=== PATIENT | male | born 1940 | race Caucasian/White ===

== ENCOUNTER 2019-03-05 12:05 | Emergency (ER) | payer MEDICARE, SELFPAY ==
[2019-03-01 08:09] VITALS: BMI 31.3
[2019-03-05 12:06] VITALS: BP 169/93; PULSE 83; RESP 20; TEMP 36.4; BMI 32.8
[2019-03-05 12:31] LABS: White Blood Cells 0 SEEN /hpf (0-5)
[2019-03-05 12:40] LABS: Absolute Lymphocyte Count 2.12 X10^3/ul (0.83-4.51); Absolute Neutrophil Count 3.8 X10^3/uL (2.0-7.7); Basophil# 0.03 X10^3/uL; Basophil% 0.4 % (0-1); Eosinophil# 0.17 X10^3/uL; Eosinophils% 2.5 % (0-5); Hematocrit 47.2 % (40-54); Hemoglobin 16.5 g/dl (13.0-16.5); Lymphocyte # 2.12 X10^3/ul (4.0); Lymphocyte % 31.2 % (19-41); Mean Corpuscular Hgb 31.5 pg (27.0-32.0); Mean Corpuscular Volume 90.1 fL (80-94); Mean Platelet Vol. 11.1 fl (6.2-12.0); Monocyte# 0.68 X10^3/uL; Neutrophil # 3.79 X10^3/uL (2.7-7.7); Neutrophil % 55.8 % (47-70); Platelet Count 212 K/mm3 (150-450); RBC Distribution Width CV 12.7 % (11.6-14.6); RBC Distribution Width SD 41.5 fl (35.1-43.9); Red Blood Count 5.24 M/mm3 (4.6-6.2); White Blood Count 6.8 K/mm3 (4.4-11.0)
[2019-03-05 12:46] LABS: Anion Gap 7 (5-15); BUN 20 mg/dL (7-18); BUN/Creat Ratio 16.5 RATIO (10-20); Calcium,Total 9.3 mg/dL (8.5-10.1); Chloride 103 mmol/L (98-107); Creatinine, Serum 1.21 mg/dL (0.70-1.30); EST Glomerular Filtration Rate 61 mL/min (>60); Est Glom Filt Rate - Afr Amer 74 mL/min (>60); Estimated Creatinine Clearance 46.28 ml/min; Glucose 104 mg/dL (74-106); Potassium 4.2 mmol/L (3.5-5.1); Sodium Level 137 mmol/L (136-145)
[2019-03-05 12:47] LABS: POSITIVE COUNT NO; POSITIVE DIFFERENTIAL NO; POSITIVE MORPHOLOGY NO
[2019-03-05 12:48] LABS: Color, Urine Yellow (Yellow); Glucose, Dipstick Normal (Normal); Ketone-Dipstick Negative (Negative); Leukocyte Esterase-Dipstick 25 /ul (Negative); Nitrite-Dipstick Negative (Negative); Occult Blood-Urine 250 /ul (Negative); Protein-Dipstick 100 mg/dl (Negative); Urine Bilirubin Dipstick Negative (Negative); Urine Clarity Cloudy (Clear); Urine Urobilinogen Normal (Normal)
[2019-03-05 13:06] LABS: Red Blood Cells-Urine > 100 SEEN /hpf (0-5); Squamous Epithelial Cells - UA 0-5 SEEN /hpf (0-5)
[2019-03-05 13:07] LABS: Bacteria 1+ /hpf (None Seen); Mucous, Urine 1+ /hpf (<or=2+)
--- NOTE | 2019-03-05 13:51 | CT_ITS ---
STUDY: CT ABDOMEN AND PELVIS WITH CONTRAST REASON FOR EXAM: Male, 78 years old. Painless hematuria. History of prior TURP and right inguinal hernia repair. RADIATION DOSAGE (If Supplied By Facility): CTDIvol = ( 16.41 ) mGy, DLP = ( 1779.12 ) mGycm TECHNIQUE: Transaxial images were obtained from the dome of the diaphragm to the symphysis pubis without oral contrast. 100 IV Isovue 300 was administered. Sagittal and coronal images were reconstructed. Individualized dose optimization techniques were used for this CT. COMPARISON: None. FINDINGS: Minimal degree of increased linear markings at the lung bases suggestive of a linear scarring. Focal nodular pleural thickening along the right lateral pleural space. Coronary artery calcification. There is decreased attenuation of the liver consistent with steatosis. 1 cm cyst seen in the medial aspect of the left lobe of the liver. A subcentimeters cyst is also seen along the anterior aspect of the right lobe of the liver. Normal gallbladder and extrahepatic biliary system. Normal spleen. Normal pancreas. Normal bilateral adrenal glands. 2.5 mm calculus in the upper pole calyx of the right kidney. There is a 6.3 cm x 5.9 cm cystic mass in the mid inferior aspect of the left kidney. This is not a typical cyst. Correlation with a shunt is recommended for further evaluation. There is a small hiatal hernia. Normal small intestine. Normal colon. The appendix is visualized and appears normal. There is diffuse atherosclerotic calcification of the abdominal aorta, without a demonstrated aneurysm. Normal inferior vena cava. Normal retroperitoneum. There is a trabeculated urinary bladder with findings suggestive of a multiple bladder diverticula along its anterior aspect. The urinary bladder is distended. There is inhomogeneous enlargement of the prostate gland. The prostate measures 5.5 cm x 5.5 cm. This causes indentation at the bladder base. Central prostatic calcifications are seen. Normal abdominal wall. There are mild minimal loss of height of the L1 vertebrae with the decreased bony density suggestive of possible hemangioma. Degenerative changes of the visualized lumbar spine. CT/Abdomen/Pelvis W IV Cont ONLY IMPRESSION: Complex cystic mass in the kidney as described. This is not a typical cyst. A neoplastic process should be ruled out. Correlation with ultrasound is recommended. Fatty infiltration of the liver. Small hepatic cysts. Distended urinary bladder with trabeculations along its anterior aspect. Prostatic enlargement with indentation at the bladder base. Electronically Signed: Bruce Viveros, at 14:36 EDT , Service support ,
[2019-03-05 14:06] VITALS: BP 162/97; PULSE 71; RESP 16; O2SAT 98
--- NOTE | 2019-03-05 14:13 | ED.VIS.GEN ---
History of Present Illness Chief Complaint: Complaint Detail of Chief Complaint: Painless hematuria Informant: Patient, Significant Other Onset: Yesterday Context: Sudden Onset Timing: Intermittent Quality: Hematuria Location: Urologic Current Severity: Mild Maximum Severity: Mild Worsened by: Nothing Relieved by: Nothing Associated Symptoms: Slight discomfort beginning of urination Narrative: Patient is an elderly male who has history of benign prostatic hypertrophy status post TURP who presents with painless gross hematuria since yesterday. He reports 3 separate incidences of gross hematuria. He denies fever, chills night sweats. He denies weight loss or weight gain. He denies flank, abdominal or testicular pain. There is no history of trauma involving the abdomen, back or genitalia. He is taking no anticoagulants. - Past Medical History (1) Benign prostatic hyperplasia Status: Chronic Past Medical History - Allergies and Home Meds Allergies/Adverse Reactions: Allergies No Known Allergies Allergy (Unverified 03/01/19 08:10) Primary Care Physician: Divina Munoz NP-C [Primary Care Provider] - Prior records reviewed: Yes Surgical History: TURP Lives: Spouse/ Significant Other Smoking Status: Former smoker Alcohol: None Drugs: None Review of Systems General: Denies: Chills, Fever, Malaise, Sweats, Weight loss Cardiovascular: Denies: Chest pain, Palpitations Respiratory: Denies: Dyspnea, Cough, Dyspnea on exertion Gastrointestinal: Denies: Abdominal pain, Nausea, Vomiting, Diarrhea, Melena, Hematochezia Genitourinary: Reports: Hematuria. Denies: Dysuria, Frequency, -, - Musculoskeletal: Denies: Myalgias, Arthralgias, Neck pain, Back pain, Extremity Pain Skin: Denies: Rash, Wounds Neurological: Denies: Weakness, Parasthesia, Numbness Hematologic: Denies: Easy bruising, Easy bleeding Allergy: Denies: Uticaria, Swelling of the mouth Physical Exam Vital Signs/Narrative: Vital Signs Temp Pulse Resp BP 03/05/19 12:06 97.6 F L 83 20 H 169/93 H Inital Vital Signs reviewed: Yes General: Well nourished, Well developed, No Acute Distress Head: Normocephalic, Atraumatic Eyes: Perrl, EOMI ENT: Moist mucous membranes, No rhinorrhea Neck: Supple, Nontender Cardiovascular: Regular rate, Regular rhythm, No murmurs Respiratory: No distress, CTA bilaterally, Chest nontender Abdomen: Soft, Nontender, Nondistended, Normal bowel sounds, No masses Back: Nontender, Normal Inspection. Negative for: CVA tenderness Extremities: Nontender, No edema Skin: Normal color, No rash Neurological: Alert, Oriented x3, Cranial nerves II-XII grossly intact, Normal Strength, Normal Sensation Psychological: Normal affect, Normal Mood Diagnostic/Tx/Re-eval Impressions Abdomen/Pelvis CT 03/05/19 13:51 IMPRESSION: Complex cystic mass in the kidney as described. This is not a typical cyst. A neoplastic process should be ruled out. Correlation with ultrasound is recommended. Fatty infiltration of the liver. Small hepatic cysts. Distended urinary bladder with trabeculations along its anterior aspect. Prostatic enlargement with indentation at the bladder base. Electronically Signed: Bruce Viveros, at 14:36 EDT , Service support , 03/05/19 13:51 Abdomen/Pelvis W IV Cont ONLY [CT] Stat 03/05/19 15:28 Renal [Kidney and Bladder] [US] Stat Laboratory Results 03/05/19 03/05/19 03/05/19 12:25 12:25 12:25 WBC 6.8 RBC 5.24 Hgb 16.5 Hct 47.2 MCV 90.1 MCH 31.5 MCHC 35.0 RDW 12.7 RDW Differential 41.5 Plt Count 212 MPV 11.1 Immature Gran % (Auto) 0.100 Neut % (Auto) 55.8 Lymph % (Auto) 31.2 [place] % (Auto) 10.0 Eos % (Auto) 2.5 Baso % (Auto) 0.4 Absolute Neuts (auto) 3.8 Absolute Lymphs (auto) 2.12 Total Counted Not Reportable Sodium 137 Potassium 4.2 Chloride 103 Carbon Dioxide 27.0 Anion Gap 7 BUN 20 H Creatinine 1.21 Estim Creat Clear Calc 46.28 Est GFR (MDRD) Af Amer 74 Est GFR (MDRD) Non-Af 61 BUN/Creatinine Ratio 16.5 Glucose 104 Calcium 9.3 Urine Color Yellow Urine Clarity Cloudy Urine pH 7.0 Ur Specific [place] 1.010 Urine Protein 100 H Urine Glucose (UA) Normal Urine Ketones Negative Urine Occult Blood 250 H Urine Nitrite Negative Urine Bilirubin Negative Urine Urobilinogen Normal Ur Leukocyte Esterase 25 H Urine RBC > 100 SEEN Urine WBC 0 SEEN Ur Squamous Epith Cells 0-5 SEEN Urine Bacteria 1+ Urine Mucus 1+ - Medical Decision Making With no evidence of infection and painless hematuria an elderly male CT of the abdomen and pelvis was obtained to assess the urologic system. Differential includes cystitis, bladder CA, kidney CA, prostate enlargement. CBC was obtained to assess white count as well as H&H. BMP was obtained to assess electrolytes and renal function. Interpretation of renal ultrasound is pending. Disposition to be made by afternoon physician once results are known. ED Disposition - Plan for ED Patient: Disposition: Home or Assisted Living Diagnosis: Complex renal cyst, Gross hematuria Instructions: ED Hematuria Referrals: Divina Munoz NP-[facility]ver[place] [Primary Care Provider] - Rock Lei MD [STAFF PHYSICIAN] - 5-7 Days
--- NOTE | 2019-03-05 14:48 | ED.RN ---
NOT AT RISK FOR SEPSIS
--- NOTE | 2019-03-05 15:28 | US_ITS ---
STUDY: RENAL ULTRASOUND - COMPLETE REASON FOR EXAM: Male, 78 years old. Renal lesion, complex cyst. Hematuria TECHNIQUE: Ultrasound evaluation of the kidneys was performed with real-time and static serrano-scale imaging. COMPARISON: CT abdomen and pelvis today FINDINGS: RIGHT KIDNEY: Normal location of the right kidney, which is normal in size. The right kidney measures 11.4 cm. There is a normal cortex of the right kidney. The renal cortex measures 1.5 cm. There is no right renal mass or cyst. Tiny right upper pole renal calculi. There is no right hydronephrosis. DISTAL RIGHT URETER: There is non-visualization of the distal right ureter. There is no demonstrated right ureterovesical junction calculus. There is a visualized right ureteral jet. LEFT KIDNEY: Normal location of the left kidney, which is normal in size. The left kidney measures 11.0 cm. There is a normal cortex of the left kidney. The renal cortex measures 1.6 cm. Anechoic and simple appearing left renal cyst is noted. Measuring 4.8 x 5.1 x 5.5 cm. There are no left renal calculi. There is no left hydronephrosis. DISTAL LEFT URETER: There is non-visualization of the distal left ureter. There is no demonstrated left ureterovesical junction calculus. There is a visualized left ureteral jet. BLADDER: There is hemorrhagic products within the bladder. Distended volume of 222 mL. No definite vascular mass is identified. Enlarged prostate. US/Kidney and Bladder IMPRESSION: Anechoic and simple appearing left renal cyst. Blood products noted within the bladder. Enlarged prostate. Electronically Signed: Guanakito Nunn DO at 17:34 EDT Tel , Service support ,
[2019-03-05 16:05] VITALS: BP 162/97; PULSE 64; RESP 18; O2SAT 99
[2019-03-05 18:00] VITALS: BP 142/67; PULSE 75; RESP 17; O2SAT 96
== END 2019-03-05 18:01 | disposition home or self-care (01) ==
PROVIDERS: Emergency Provider Emergency Medicine; Family Provider Nurse Practitioner; PCP Nurse Practitioner
DX: N28.1 Cyst of kidney, acquired (principal); R31.0 Gross hematuria; N40.0 Benign prostatic hyperplasia without lower urinary tract symptoms; K76.0 Fatty (change of) liver, not elsewhere classified; K76.89 Other specified diseases of liver; Z87.891 Personal history of nicotine dependence
CPT/HCPCS: 74177; 76770; 80048; 81001; 85025; 99283; Q9967; A4216

== ENCOUNTER 2019-03-09 11:12 | Day surgery (SDC) | payer MEDICARE, SELFPAY ==
[2019-03-01 08:09] VITALS: BMI 31.3
[2019-03-09] VITALS (7 sets, daily range): BP systolic 123–167; BP diastolic 72–87; PULSE 57–68; RESP 14–16; TEMP 36.1–37.2; O2SAT 96–100; BMI 32.4
--- NOTE | 2019-03-09 07:02 | HP_ITS ---
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 Is patient in pain?: No Allergies No Known Allergies Allergy (Verified 03/08/19 10:24) Medications ascorbic acid (vitamin C) 500 mg capsule 500 mg PO DAILY cap 03/01/19 [History Confirmed 03/08/19] vitamin B12 500 mcg-folic acid 400 mcg tablet 1 tab PO DAILY 03/01/19 [History Confirmed 03/08/19] PFS Surgical History S/P TURP (Acute) S/P carpal tunnel release (Acute) Status post wrist surgery (Acute) Social History Smoking Status: Former smoker alcohol intake: never HPI HPI HPI: JUNIOR VERAS, is a 78 M who presents to the office today for HPI HPI Surgical H&P: Yes HPI: JUNIOR VERAS, is a 78 M who presents to the office today for evaluation of 2 back subcutaneous lesions. He has had these for over 10 years numerous physicians have told him that if they were bothering him he should not do anything to them. However now they are starting to bother him whenever he is sitting back or trying to lie on his back to go to sleep he is having discomfort he is never had any infections in the back he has never recalled any trauma to the areas. ROS General General: No weight change, appetite, fatigue, colon cancer, breast cancer or weakness HEENT HEENT: No difficulty swallowing, eye injury, eye surgery, swollen glands or hoarseness Endo Endocrine: No thyroid disease, diabetes mellitus, thyroid cancer, Hair loss, heat intolerance or cold intolerance Skin Skin: Yes changing moles; no rash Breast Breast: No left breast lump, right breast lump, nipple discharge, breast pain, abnormal mammogram, abnormal US or breast enlargement Musc Musculoskeletal: Yes arthritis; no back problems, rheumatoid arthritis, gout or joint pain Cardio Cardiovascular: No murmur, pacemaker, heart disease, atrial fibrillation, high blood pressure, heart attack, heart stent, palpitations, shortness of breat with exertion or chest pain Psych Psychiatric: No depression, anxiety or hearing voices Resp Respiratory: No shortness of breath, No sleep apnea, No cough, No COPD, No asthma, No emphysema, No wheezing Gastro Gastrointestinal: No abdominal pain, No nausea or vomiting, No diarrhea, No constipation, No blood in stool, No acid reflux, No hemorrhoids, No ulcers, No gallbladder problem, No black,tarry stools Martin Hematologic: No blood thinners, No blood disorders, No bleeding, No anemia, No blood clots Neuro Neurologic: No system reviewed and no additional complaints, except as docu, No as per HPI, No abnormal walking, No abnormal hearing, No abnormal movements, No abnormal speech, No behavioral changes, No burning sensations, No confusion, No seizure-like activity, No unsteadiness, No dizziness, No localized weakness, No frequent falls, No headache(s), No lack of coordination, No loss of vision, No memory loss, No numbness, No other visual disturbances, No radiating pain, No restless legs, No sensory deficit, No fainting, No tingling, No tremor(s), No weakness, No other Exam Const General: no acute distress, well developed, well hydrated Orientation: oriented to person, oriented to place, oriented to time [facility] Head: normocephalic, atraumatic Ears: external ears normal Mouth: moist mucous membranes Eyes Sclera: sclerae normal Pupils: normal by confrontation Neck Neck: no lymphadenopathy noted Neck mass: No Thyroid: thyroid normal, symmetrical Chest Chest palpation & inspection: normal inspection of the chest Breast Palpation: No nipple discharge Resp Effort & Inspection: normal respiratory effort Auscultation: clear to auscultation bilaterally Percussion: percussion normal Cardio Rate: regular rate Rhythm: regular rhythm Heart Sounds: no murmurs GI Palpation: soft, no hepatosplenomegaly, no masses, nontender Rectal Exam: other Other: Rectal exam deferred. Skin Other: Upper left shoulder blade shows approximately a 5 cm subcutaneous lesion most likely consistent with a lipoma it is soft and it has no aggressive features of firmness or immobility. On the mid right lower back is an extremely large 10+ centimeters subcutaneous lesion once again which is soft and most likely consistent with a lipoma. It too has no aggressive features of firmness or immobility. Extrem General: normal to inspection, no clubbing, cyanosis or edema Assessment & Plan Problems 1. Lesion of subcutaneous tissue L98.9 Plan My plan will be to a size both of these subcutaneous lesions in the OR under local MAC.We discussed the risks and benefits of the planned procedure. I have informed the patient that complications can occur including failure to complete the procedure. The patient had the opportunity to ask questions concerning the planned procedure. My staff has also explained the procedure to the patient in understandable terms and has given the patient printed material concerning the procedure. The patient freely consents to the procedure. Coding Level of Care Code Off vis,new,level 3 Diagnoses Lesion of subcutaneous tissue L98.9
[2019-03-09] MEDS: Cefazolin 2 GM in 0.9% Normal Saline 100 ML IV (12:56)
--- NOTE | 2019-03-09 12:57 | PCM.OPRPT ---
Problem List (1) Lesion of subcutaneous tissue Status: Acute Report of Operation Date of Procedure: 03/09/19 Pre-Operative Diagnosis: Subcutaneous lesions of the back Post-Operative Diagnosis: Same Surgery/Procedure Performed:: 1. Excision of a 8 cm subcutaneous lesion of the back. 2. Excision of a 5.5 cm subcutaneous lesion of back Type of Anesthesia:: Local MAC Anesthesiologist: Miguel Lopez Specimen's removed: 1. 5.5 cm lobulated subcutaneous lesion left shoulder. 2. 8 cm lobulated subcutaneous lesion of right mid back Estimated Blood Loss (mL): < 25 cc Fluids Replaced: 700 cc lr Description of Procedure: Patient was brought into the operating room. Placed in the prone position on the operating room table under excellent MAC anesthetic the back was sterilely prepped draped usual fashion. I started on the left shoulder blade 5.5 lesion was identified. I injected local mid incision and dissected out a multilobulated fatty lesion use electrocautery for good hemostasis brought the wound together with deep dermal stitches of 3-0 Vicryl in a running 4-0 Monocryl. In the right mid back was a large 8 cm subcutaneous lesion local was injected. Incision was made dissection was carried down electrocautery was used to remove this large cingulate lobulated lesion electrocautery was used for good hemostasis. Sophia's layer was brought together with a 2-0 Vicryl deep dermals with 3-0 Vicryl in a running 4-0 Monocryl. Dermabond was applied sterile dressings were applied and the patient tolerated the procedure well. - Admit VTE Documentation VTE Present on Admission: No VTE Mechan Device Prophylaxis: SCD's VTE Pharm Prophylaxis ordered?: No Reason prophylaxis not ordered:: Treatment Not Indicated
--- NOTE | 2019-03-09 13:01 | DCINST_ITS ---
Discharge Diet: Light diet - advance as tolerated - If you have questions about your diet instructions, please talk to your doctor. Discharge Activity: May Not Drive - for 1 week or while taking narcotic pain medicine. May shower in (days): 1 Lifting Restrictions: 10 pounds Call your doctor if your incision/area has: Continuous Slow Oozing, Sudden Increased Bleeding, Increased Pain/ Swelling, Increased Redness, Foul Smelling Discharge Call your doctor if you observe: Fever of 101 or Higher Suture Line Care: Avoid Pulling/Pushing, Avoid Pinching/Bending Additional Dressing/Incision Instructions:: Change or remove dressing in 4 days. Leave steri-strips in place for 1 week. Allergies/Adverse Reactions: Allergies No Known Allergies Allergy (Verified 03/08/19 10:24) Medications to take at Discharge ascorbic acid (vitamin C) 500 mg capsule 500 mg PO DAILY cap 03/01/19 vitamin B12 500 mcg-folic acid 400 mcg tablet 1 tab PO DAILY 03/01/19 Primary Care Physician: Divina Munoz NP-C [Primary Care Provider] - Test Results: Test results from this visit will be discussed in further detail at your follow- up appointment, if applicable. Please Follow Up With: Zoran Wilson MD - [phone] When: Call to make an appointment to be seen in about 10 days.
--- NOTE | 2019-03-09 13:20 | LES_PTH ---
PATIENT: JUNIOR Jenny VERAS LOC: [facility] [place] U#:[id number] AGE/SX: 78/M ROOM: RE03/09/[address]: Dr. Zoran Wilson MD : 1940 BED: DIS: 03/09/2019 SPEC #: [id number] RECD: 03/09/19 15:54 STATUS: RICK EDISON #: [id number] ROGERS: 03/09/19 13:[address]: Zoran Wilson DEPT: SURGICAL PATHOLOGY RECD BY: Jairo Rosado ENTERED: 03/10/19 13:11 SP TYPE: Lesion OTHR DR: Divina Munoz, BOILERMAKER FITTER-[facility] Tissues: A - Skin of upper extremity and shoulder B - Skin of back, NOS Procedures: Surgery Specimen Level III HEADER OPERATION: Excision lipoma back x2 PRE-OP DIAGNOSIS: Lesion of subcutaneous tissue TISSUE SUBMITTED: A - Subcutaneous lesion of left shoulder 5.5 x5, B - Subcutaneous lesion of back 8 x 6 MICROSCOPIC DIAGNOSIS A. Subcutaneous lesion, left shoulder, excision: Mature adipose tissue, consistent with lipoma. B. Subcutaneous lesion, back, biopsy: Mature adipose tissue, consistent with lipoma. NELL:araceli 03/11/19 MICROSCOPIC DESCRIPTION Slides are reviewed. GROSS DESCRIPTION A - Received in fixative is one container labeled with the patient's name and designated subcutaneous lesion left shoulder. The specimen consists of an irregular piece of adipose tissue measuring 4 x 5 x 2 cm. The external surface is inked. Sections reveal yellow adipose cut surfaces without areas of hemorrhage, necrosis or cystic degeneration. Box Gluer sections are submitted in three cassettes. B - Received in fixative is one container labeled with the patient's name and designated subcutaneous lesion of back. The specimen consists of an irregular piece of adipose tissue measuring 7 x 6 x 2.5 cm. The external surface is inked. Sections reveal yellow adipose cut surfaces without areas of hemorrhage, necrosis or cystic degeneration. Box Gluer sections are submitted in five cassettes. / NELL:araceli 03/10/19 TC:1 CPT: 82760 x2
[2019-03-09] MEDS: Bupivacaine Mpf 0.5% 30 ML VIAL (13:31)
== END 2019-03-09 15:13 | disposition home or self-care (01) ==
LOC: SDC 11:12 → AC 11:14
PROVIDERS: Family Provider Nurse Practitioner; PCP Nurse Practitioner; Referring Provider Surgery; Visit Provider Surgery
PROC: (CPT 11406; principal; 2019-03-09 13:05)
DX: D17.1 Benign lipomatous neoplasm of skin and subcutaneous tissue of trunk (principal); Z87.891 Personal history of nicotine dependence; M19.90 Unspecified osteoarthritis, unspecified site; R52 Pain, unspecified
CPT/HCPCS: 11406; 88304; 88305; J7120

== ENCOUNTER → 2019-03-17 | Outpatient (CLI) | payer MEDICARE, SELFPAY ==
[2019-03-09 11:45] VITALS: BMI 32.4
[2019-03-17 12:27] LABS: PSA,Total - Annual Screen 4.98 ng/mL (0.00-4.00)
== END | disposition home or self-care (01) ==
LOC: MTLAB 10:33
PROVIDERS: Family Provider Nurse Practitioner; PCP Nurse Practitioner; Referring Provider Nurse Practitioner; Visit Provider Nurse Practitioner
DX: Z12.5 Encounter for screening for malignant neoplasm of prostate (principal)
CPT/HCPCS: 36415; 84153; G0103

== ENCOUNTER → 2020-10-27 14:04 | Outpatient (CLI) | payer MEDICARE, SELFPAY ==
[2019-03-09 11:45] VITALS: BMI 32.4
--- NOTE | 2020-10-27 14:08 | CT_ITS ---
STUDY: CT ABDOMEN WITH CONTRAST REASON FOR EXAM: Male, 79 years old. F/U KIDNEY CYST LEFT RADIATION DOSAGE (If Supplied By Facility): CTDIvol = ( 18.04 ) mGy, DLP = ( 1207.80 ) mGycm TECHNIQUE: Transaxial images were obtained post I.V. administration of IV 75ML Isovue 300, and oral contrast. Sagittal and coronal images were reconstructed. Individualized dose optimization techniques were used for this CT. COMPARISON: 05 March 2019 FINDINGS: The visualized lung bases are unremarkable. The visualized portions of the heart are within normal limits. Normal liver. There are benign subcentimeter hepatic hypodense cysts, not requiring further imaging follow-up. Normal gallbladder and extrahepatic biliary system. Normal spleen. Normal pancreas. Normal bilateral adrenal glands. Left renal intermediate density, 43HU, probably multicystic lesion has enlarged since 2019 and now measures 6.4 cm, previously 5.7cm. The lesion cannot be definitively characterized as noncontrast phase was not provided and delayed phase was performed at 5 minutes, standard delayed phase is 15 minutes. Right kidney contains a 3 mm stone in the upper pole. There is no intestinal obstruction. Normal upper abdominal aorta. Normal inferior vena cava. Normal retroperitoneum. Normal abdominal wall. Osseous structures are intact with a benign hemangioma in L1 and bilateral L5 pars lysis. There are no destructive bone lesions. Pelvis was not imaged. CT/Abdomen WITH IV Contrast IMPRESSION: 1. Enlarging left renal lesion, now 6.4 cm, incompletely characterized. Low-grade/cystic renal cell carcinoma is primary differential possibility. MRI is the next most accurate imaging modality. However, CT renal protocol without and with IV contrast can also be utilized. Electronically Signed: Bruce Watson, at 21:19 EST Tel , Service support ,
[2020-10-27 14:36] LABS: CREATININE FINGERSTICK 1.5 mg/dL (0.70-1.30)
== END ==
PROVIDERS: PCP Nurse Practitioner; Referring Provider Nurse Practitioner Adult Health; Visit Provider Nurse Practitioner Adult Health
DX: N28.1 Cyst of kidney, acquired (principal)
CPT/HCPCS: 74160; Q9967

== ENCOUNTER → 2023-05-05 | Outpatient (CLI) | payer MEDICARE, SELFPAY ==
[2023-05-05 10:20] LABS: D-Dimer Quantitative (DVT/PE) 0.31 FEU/ug/m (0.27-0.49)
[2023-05-05 10:27] LABS: Troponin-I HS 6 pg/mL (3.0-78.0)
[2023-05-05 10:48] LABS: Erythrocyte Sedimentation Rate 4 mm/hr (0-20)
[2023-05-05 19:26] LABS: CRP, High Sensitivity Cardiac 1.99 mg/L
== END | disposition home or self-care (01) ==
LOC: LABSPEC 09:58
PROVIDERS: PCP Nurse Practitioner Family; Referring Provider Nurse Practitioner Family; Visit Provider Nurse Practitioner Family
DX: R07.9 Chest pain, unspecified (principal)
CPT/HCPCS: 84484; 85379; 85652; 86141

== ENCOUNTER → 2023-05-27 | Outpatient (CLI) | payer MEDICARE, SELFPAY ==
--- NOTE | 2023-05-27 10:44 | ECHOD_ITS ---
Reason For Study: RBBB, UNSPECIFIED Procedure This was a 2D Doppler, Color Flow transthoracic echocardiogram. Exam performed in department. Left Ventricle Normal LV size. Left ventricular systolic function is normal. The estimated ejection fraction is 60 %. Stage 1 diastolic dysfunction. No regional wall motion abnormalities noted. Right Ventricle Normal RV size. Normal systolic function. Atria Normal left atrium. Normal right atrium. Mitral Valve Normal mitral valve. Tricuspid Valve Normal tricuspid valve. Mild (1+) tricuspid valve insufficiency. Pulmonary artery systolic pressure is 30 mmHg. Aortic Valve Trisinus/trileaflet aortic valve. Pulmonic Valve Normal pulmonic valve. Great Vessels Normal aortic root. Pericardium/Pleural No pericardial effusion. MMode/2D Measurements & Calculations LVIDd: 5.0 cm IVSd: 0.96 cm Ao root diam: 3.4 cm LVIDs: 2.5 cm LVPWd: 0.98 cm RVDd: 4.0 cm FS: 49.5 % LAV(MOD-bp): 53.8 ml LVAd ap4: 29.9 cm2 LVAd ap2: 25.2 cm2 LAV(MOD-bp) Indexed: 26.4 ml/m2 LVLd ap4: 8.1 cm LVLd ap2: 8.0 cm LAV(MOD-sp2): 52.8 ml EDV(MOD-sp4): 88.4 ml EDV(MOD-sp2): 70.4 ml LAV(MOD-sp4): 52.9 ml EDV(sp4-el): 93.3 ml EDV(sp2-el): 67.2 ml LVAs ap4: 14.8 cm2 LVAs ap2: 12.7 cm2 LVLs ap4: 6.9 cm LVLs ap2: 6.9 cm ESV(MOD-sp4): 26.8 ml ESV(MOD-sp2): 22.2 ml ESV(sp4-el): 27.1 ml ESV(sp2-el): 19.6 ml EF(MOD-sp4): 69.7 % EF(MOD-sp2): 68.5 % EF(sp4-el): 70.9 % SV(MOD-sp4): 61.6 ml SV(MOD-sp2): 48.3 ml SV(sp4-el): 66.2 ml LA dimension(2D): 3.9 cm LA A4 area: 17.8 cm2 RA A4 area: 16.4 cm2 TAPSE: 2.5 cm Time Measurements MV dec time: 0.23 sec Doppler Measurements & Calculations MV E max jean-claude: 66.6 cm/sec Lat Peak E' Jean-Claude: 8.3 cm/sec Med Peak E' Jean-Claude: 7.6 cm/sec MV A max jean-claude: 90.3 cm/sec E/E' lat: 8.0 E/E' med: 8.7 MV E/A: 0.74 MV dec slope: 287.5 cm/sec2 Ao V2 max: 117.6 cm/sec LV V1 max: 114.3 cm/sec Ao max P.5 mmHg LV V1 max P.2 mmHg Ao V2 mean: 85.2 cm/sec LV V1 mean P.6 mmHg Ao mean P.3 mmHg LV V1 mean: 74.6 cm/sec Ao V2 VTI: 29.9 cm LV V1 VTI: 27.6 cm AV (velocity ratio): 0.92 MR max jean-claude: 521.9 cm/sec PA V2 max: 105.3 cm/sec TR max jean-claude: 250.3 cm/sec MR max P.0 mmHg PA V2 mean: 75.5 cm/sec TR max P.1 mmHg MR mean jean-claude: 443.2 cm/sec MR mean P.2 mmHg MR VTI: 179.5 cm ECHO/Echo Complete Interpretation Summary Normal LV size. Left ventricular systolic function is normal. The estimated ejection fraction is 60 %. Stage 1 diastolic dysfunction. Pulmonary artery systolic pressure is 30 mmHg. Ordering Physician: Alexa Zhang Referring Physician: Alexa Zhang Performed By: Cara Cevallos RDCS, RVT
== END | disposition home or self-care (01) ==
LOC: CVS 10:42
PROVIDERS: PCP Nurse Practitioner Family; Referring Provider Nurse Practitioner Family; Visit Provider Nurse Practitioner Family
DX: I45.10 Unspecified right bundle-branch block (principal); I45.3 Trifascicular block
CPT/HCPCS: 93306

== ENCOUNTER → 2023-06-05 | Outpatient (CLI) | payer MEDICARE, SELFPAY ==
--- NOTE | 2023-06-05 11:34 | STRESSREP ---
Stress Test Report Date: 06/05/2023 Procedure: Exercise tolerance test Indications: Chest pain Consent: Per the patient Procedure: The patient exercised on a Aki protocol for 3 minutes and 28 seconds achieving a peak heart rate of 120 bpm (89% predicted maximal heart rate) with a peak blood pressure 162/64 mmHg and a peak MET capacity of approximately 5.6 MET's. The baseline ECG demonstrated normal sinus rhythm with right bundle branch block. The peak exercise ECG demonstrated no diagnostic ischemic changes. There were no cardiac dysrhythmias pretest, during exercise, or recovery. The functional capacity was considered suboptimal. The patient had no complaints of chest discomfort during exercise or recovery. The examination was discontinued secondary to target heart rate being achieved and dyspnea. Impression: 1. Technically adequate (percent predicted maximal heart rate greater than 85%) exercise tolerance test 2. Peak exercise ECG with no diagnostic ischemic changes. Please note that baseline abnormality decreases diagnostic yield of the test. 3. There were no cardiac dysrhythmias during exercise or recovery This note was generated with [employer] software. It may contain incorrect words, spelling, and punctuation that were not noted in checking the note before signing.
== END | disposition home or self-care (01) ==
LOC: CVS 08:42
PROVIDERS: PCP Nurse Practitioner Family; Referring Provider Nurse Practitioner Family; Visit Provider Nurse Practitioner Family
DX: R07.9 Chest pain, unspecified (principal)
CPT/HCPCS: 93017

== ENCOUNTER → 2023-07-17 | Outpatient (CLI) | payer MEDICARE, SELFPAY ==
--- NOTE | 2023-07-17 16:30 | LES_PTH ---
PATIENT: JUNIOR Jenny VERAS LOC: [facility] U#:[id number] AGE/SX: 82/M ROOM: RE07/17/[address]: Dr. Carlos Slaughter MD : [id number] BED: DIS: 07/17/2023 SPEC #: [id number] RECD: 07/17/23 17:33 STATUS: RICK EDISON #: [id number] ROGERS: 07/17/23 16:[address]: Carlos Slaughter DEPT: SURGICAL PATHOLOGY RECD BY: Catalina Evans ENTERED: 07/18/23 10:20 SP TYPE: Lesion OTHR DR: Alexa Zhang, GIL-C Tissues: Skin of eyelid, NOS Procedures: Surgery Specimen Level IV HEADER OPERATION: Lesion removal from left upper lid PRE-OP DIAGNOSIS: Lesion left upper lid TISSUE SUBMITTED: Lesion left upper lid MICROSCOPIC DIAGNOSIS Lesion of left upper eyelid, biopsy: Seborrheic keratosis, mildly inflamed. Solar elastosis. AM:[email or web address] 07/22/2023 MICROSCOPIC DESCRIPTION Slides are reviewed. GROSS DESCRIPTION Received in fixative is one container labeled with the patient's name and designated left upper lid. The specimen consists of a piece of giang-white skin measuring 0.5 x 0.4 x 0.2 cm. The specimen is inked, bisected and submitted entirely in one cassette. / SJ:araceli 07/18/2023 TC:5 CPT:
== END | disposition home or self-care (01) ==
LOC: LABSPEC 07-18 09:31
PROVIDERS: PCP Nurse Practitioner Family; Visit Provider Ophthalmology
DX: L82.1 Other seborrheic keratosis (principal)
CPT/HCPCS: 88305

== ENCOUNTER → 2023-11-03 | Outpatient (CLI) | payer MEDICARE, SELFPAY | END | disposition home or self-care (01) | LOC: LAB 09:14 | PROVIDERS: PCP Nurse Practitioner Family; Referring Provider Urology; Visit Provider Urology | DX: N40.1 Benign prostatic hyperplasia with lower urinary tract symptoms (principal) | CPT/HCPCS: 36415; 84153 ==

== ENCOUNTER → 2025-01-05 | Outpatient (CLI) | payer MEDICARE, SELFPAY ==
--- NOTE | 2025-01-05 12:06 | NEURO ---
NCS and/or EMG Patient Report Ordering Doctor: Alexa Zhang DATE OF SERVICE: 01/05/25 Casey presents for electrodiagnostic testing of the right upper limb. Reports numbness and tingling in the first 3 digits of the right hand. Electrodiagnostic findings: Right median motor nerve demonstrates prolonged latency with normal amplitude and reduced conduction velocity. Normal right ulnar motor response. Absent right median sensory latency at the wrist. Prolonged right median F?wave. Needle EMG was performed in the right upper limb. All muscles tested showed no evidence of denervation with normal motor unit action potentials. Electrodiagnostic impression: This is an abnormal study in the right upper limb. Were 1 electrodiagnostic findings suggestive of right-sided median mononeuropathy. This consistent with a moderate right carpal tunnel syndrome. Multi Select Codes Neurology Neurology Interp Codes: 87992-50 Musc test done w/n test comp (interp) and 33057-37 Nrv cndj tst 5-6 studies (interp)
== END | disposition home or self-care (01) ==
LOC: PSN 10:08
PROVIDERS: PCP Nurse Practitioner Family; Referring Provider Nurse Practitioner Family; Visit Provider Nurse Practitioner Family
DX: G56.01 Carpal tunnel syndrome, right upper limb (principal)
CPT/HCPCS: 95886; 95909